=== PATIENT | male | born 1935 | race Caucasian/White ===

== ENCOUNTER 2016-07-31 06:30 | Day surgery (SDC) | payer MEDICARE, OTHER ==
[2016-07-28 13:48] LABS: BASOPHILS 0.5 % (0.0-2.0); EOSINOPHILS 1.6 % (0-7); HEMATOCRIT 42.6 % (42.0-54.0); IMMATURE GRANULOCYTES 0.3 % (0-5); LYMPHOCYTES 13.3 % (15-50); MCHC 32.9 g/dL (31.0-37.0); MCV 109.5 fL (80.0-100.0); MEAN PLATELET VOLUME 8.9 fL (7.4-10.4); MONOCYTES 7.8 % (2-11); NEUTROPHILS 76.5 % (40-80); PLATELET COUNT 345 10x3/uL (130-400); RBC 3.89 10x6/uL (4.20-6.10); WBC 7.4 10x3/uL (4.8-10.8)
[2016-07-28 14:12] LABS: CALC OSMOLALITY 277 mosm/kg (275-300); CALCIUM 9.3 mg/dL (8.5-10.1); CARBON DIOXIDE 31.1 mmol/L (21.0-32.0); CHLORIDE - SERUM 105 mmol/L (98-107); CREATININE - SERUM 0.9 mg/dL (0.6-1.3); GLUCOSE 84 mg/dL (74-106); POTASSIUM - SERUM 4.8 mmol/L (3.5-5.1); SODIUM 139 mmol/L (136-145); UREA NITROGEN 15 mg/dL (7-18); eGFR NON AFRICAN AMERICAN 86 mL/min (90-120)
[~2016-07-31] VITALS: Ht 170.2 cm; Wt 72.1 kg
[~2016-07-31 06:30] MED LIST: ALDACTONE25 MG PO; ALEVE220 MG PO; AMITRIPTYLINE H50 MG PO; ASCORBIC ACID500 MG PO; BAYER CHEWABLE81 MG PO; CALCIUM 600+D T1 TA1 PO; CIPRO500 MG PO; COD LIVER OIL; DIOVAN80 MG PO; FEXOFENADINE H180 MG PO; FLOMAX0.4 MG PO; FLUTICASONE PRO16 GM NASAL; FOLIC ACID1 MG PO; HYDROXYUREA500 MG PO; LIPITOR10 MG PO; METHOTREXATE2.5 MG PO; MILK THISTLE140 MG PO; MULTIPLE VITAMI1 TA1 PO; PLAQUENIL200 MG PO; PRILOSEC20 MG PO; PROBIOTIC1 EAC1 PO; SELENIUM; VITAMIN D31000 UNIT PO
[2016-07-31] MEDS ORDERED: XALATAN 0.0052.5 ML EACH EYE (07:02)
[2016-07-31 07:03] VITALS: BP 123/58; Ht 170.2 cm; Wt 72.1 kg
[2016-07-31] MEDS ORDERED: HYDROCODON-ACE1 EAC7 PO (11:18)
--- NOTE | 2016-07-31 15:04 | OP ---
PATIENT NAME: IVONNE MIDDLETON MEDICAL RECORD: [id number] :37 [facility] DATE: SURGEON: VALENTÍN DAVISON MD DATE OF OPERATION: 07/31/2016 SURGEON: Valentín Davison MD PREOPERATIVE DIAGNOSIS: Bilateral inguinal hernia. POSTOPERATIVE DIAGNOSIS: Bilateral inguinal hernia. PROCEDURE PERFORMED: Laparoscopic bilateral inguinal hernia repair with Bard 3DMax. ANESTHESIA: General. COMPLICATIONS: None. SPECIMENS: None. Case was clean. ESTIMATED BLOOD LOSS: 20 cc. OPERATIVE COURSE: After consent was obtained, the patient was taken to the operating room and placed in the supine position on the operating table. Next, general anesthesia was given via endotracheal intubation after a timeout was taken to confirm the correct patient and procedure. The abdomen was prepped and draped in typical sterile fashion. An Ioban dressing was placed. Local anesthetic was injected just to the right of the umbilicus. A stab incision was made with a 15 blade scalpel. Dissection continued through the subcutaneous tissue at the level of the external oblique fascia using electrocautery. The external oblique fascia was identified. A small incision was made in the external oblique fascia with electrocautery. Using a Iqra clamp, the muscles were gently split and the peritoneum was encountered. The SpaceMaker balloon was inserted in a retrorectus fashion and inserted to the pubic tubercle, the SpaceMaker balloon was inflated, creating the preperitoneal space. The SpaceMaker balloon was removed. The preperitoneal space was then insufflated with CO2. There was good dissection with the SpaceMaker balloon, 2 additional trocars were then placed, one in the right lower quadrant and the left lower quadrant under direct laparoscopic vision. Further blunt dissection of the preperitoneal space was performed. There was bilateral indirect inguinal hernias, the left started first. The peritoneum was gently dissection. The inferior epigastrics were identified. The hernia was reduced. The tissues dissected and the artery and vein were identified. The peritoneum was dissected until the vas was noted to be running medially. This was repeated on the right side, again the peritoneum was bluntly dissected. The hernia was reduced, the hernia contents were reduced. The lipoma and the cord was dissected. The artery and vein were identified as well as the was. Dissection of the peritoneum continued inferiorly into the vas noted running medially. At this time, careful attention was paid to hemostasis. The preperitoneal space was irrigated and suctioned. Hemostasis was obtained with electrocautery. A Bard 3DMax light mesh left-sided was placed into the preperitoneal space. It was secured to the pubic tubercle medially, it was secured to the rectus muscle medially. A single tack was placed laterally. A right-sided Bard 3DMax light OPERATIVE REPORT [id number] IVONNE MIDDLETON mesh was then placed in the preperitoneal space, it was tacked medially to the Jeovanny's ligament. Again, a single lateral tack was placed and tacked into the posterior rectus muscle. At this time, the preperitoneal space again inspected. There was no evidence of bleeding and no evidence of injury. All remaining instruments were removed. The preperitoneal space was desufflated. Trocars were removed. The external oblique fascia was closed with an 0 Vicryl suture using 3 [id number] sutures, subcutaneous tissue was closed with 3-0 Vicryl. The skin was closed with 4-0 Monocryl, Mastisol and Steri-Strips. At the end of the case, all needle counts were correct. No complications occurred. At the end of the case, both testicles were noted to be within the scrotum. The patient was extubated and transferred to the PACU in stable condition. 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
== END 2016-07-31 13:40 | disposition home or self-care (01) ==
LOC: D.OPS 06:30 → D.PAN 08:30 → D.OPS 08:40
PROVIDERS: Anesthesiology
DX: K40.20 Bilateral inguinal hernia, without obstruction or gangrene, not specified as recurrent (principal); I25.10 Atherosclerotic heart disease of native coronary artery without angina pectoris; Z95.1 Presence of aortocoronary bypass graft

== ENCOUNTER → 2017-11-01 08:42 | Outpatient (CLI) | payer MEDICARE, OTHER ==
[2016-07-31 07:03] VITALS: BMI 24.9
[~2017-11-01 08:42] MED LIST changes: +HYDROCODON-ACE1 EAC7 PO; +XALATAN 0.0052.5 ML EACH EYE
== END | disposition home or self-care (01) ==
LOC: D.RAD 08:00
DX: R91.1 Solitary pulmonary nodule (principal)

== ENCOUNTER → 2018-10-31 12:40 | Outpatient (CLI) | payer MEDICARE, OTHER ==
[2016-07-31 07:03] VITALS: BMI 24.9
== END | disposition home or self-care (01) ==
LOC: D.RAD 12:40
PROVIDERS: ATTEND Internal Medicine Cardiovascular Disease
DX: R91.1 Solitary pulmonary nodule (principal)